=== PATIENT | male | born 1975 | race Hispanic/Latino ===

== ENCOUNTER 2020-02-06 17:18 | Inpatient (IN) | payer MEDICARE ==
[~2020-02-06] VITALS: Ht 175.3 cm; Wt 81.4 kg
[2020-02-06 17:50] VITALS: BP 130/82
[2020-02-06] MEDS ORDERED: SODIUM CHLORIDE 0.9% 1000ML 1,000 ML IV ONE (18:23)
[2020-02-06 19:18] VITALS: BP 138/86
[2020-02-06 19:22] VITALS: BP 138/86
[2020-02-06] MEDS ORDERED: IOHEXOL-350 75 ML VIAL IV ONE (19:29)
[2020-02-06] MEDS: SODIUM CHLORIDE 0.9% 1000ML 1,000 ML IV SCH (19:44)
[2020-02-06] MEDS ORDERED: DiphenhydrAMINE HCL 50 MG/ML VIAL IV PRN (19:45)
[2020-02-06] MEDS ORDERED: ONDANSETRON HCL 4 MG/2 ML VIAL IV PRN (19:45)
[2020-02-06] MEDS ORDERED: MAG HYDROX/AL HYDROX/SIMETH ES 30 ML SUSP UDCUP PO PRN (19:45)
[2020-02-06] MEDS ORDERED: ACETAMINOPHEN 325 MG TAB PO PRN ×2 (19:45)
[2020-02-06] MEDS ORDERED: LACTULOSE 20 GM/30 ML UDCUP PO PRN (19:45)
[2020-02-06] MEDS ORDERED: KETOROLAC TROMETHAMINE 15MG/ML IV PRN (20:00)
[2020-02-06] MEDS ORDERED: ACETAMINOPHEN 650 MG SUPPOSITORY RC ONE (20:30)
[2020-02-06] MEDS: METRONIDAZOLE 500MG/100ML BAG 100 ML IV SCH (20:33)
[2020-02-06] MEDS: FAMOTIDINE/PF 20 MG/2 ML VIAL IV SCH (20:33)
--- NOTE | 2020-02-06 20:40 | NUR ---
Temp: 99.[address] Ring with an order to give Tylenol 650 mg Supp q6h prn instead of po. Also informed tech writer that its just ok to give Ativan as per standing order if pt will have seizure. to review in AM all pt's home medications.
--- NOTE | 2020-02-06 20:45 | NUR ---
Mother reported that pt. pulled out NGT. 14 Fr. NGT inserted to left naris following hospital protocol. Pt. tolerated well. NGT checked for placement, intact and secured with tape. Connected to low intermittent suction with brown-greenish fluid returned in suction canister.
[2020-02-06] MEDS ORDERED: BENZ2TAB10 PO (21:05)
[2020-02-06] MEDS ORDERED: LITH150C PO (21:05)
[2020-02-06] MEDS ORDERED: OLAN20TA35 PO (21:05)
[2020-02-06] MEDS ORDERED: TRAZ300T2 PO (21:05)
[2020-02-06] MEDS ORDERED: DIVA500T52 PO (21:05)
[2020-02-06] MEDS ORDERED: BUSP30TA2 PO (21:05)
[2020-02-06] MEDS ORDERED: OLAN10TA20 PO (21:05)
[2020-02-06] MEDS ORDERED: CLON0.5T23 PO (21:05)
[2020-02-06] MEDS ORDERED: MONT10TA26 PO (21:05)
[2020-02-06] MEDS ORDERED: LEVO5TAB13 PO (21:05)
[2020-02-06] MEDS ORDERED: PROM12.513 PO (21:05)
[2020-02-06] MEDS ORDERED: SULF1TAB89 PO (21:05)
[2020-02-06] MEDS ORDERED: LITH450T16 PO (21:05)
[2020-02-06] MEDS ORDERED: PHEN100C9 PO (21:05)
[2020-02-06] MEDS: CEFTRIAXONE SODIUM 1 GM IV SCH (21:18)
[2020-02-06] MEDS: LORAZEPAM 2 MG/ML 1 ML VIAL IM PRN (22:51)
--- NOTE | 2020-02-06 23:15 | NUR ---
Pt pulled out the NGT again. 16 Fr. NGT inserted to right and left naris following hospital protocol. Pt. not tolerating it well. NGT checked for placement not intact. Have pt rest for 35 mins before attempting again.
[2020-02-06 23:43] VITALS: BP 136/98
--- NOTE | 2020-02-07 00:20 | NUR ---
After period of resting , attempted 14 Fr. NGT insertion to left naris following hospital protocol. Pt. tolerated well. NGT checked for placement, intact and secured with tape x2 . Connected to low intermittent suction with brown-greenish fluid returned in suction canister. Mittens placed as per protocol to prevent harming oneself.
[2020-02-07] MEDS: LORAZEPAM 2 MG/ML 1 ML VIAL IM PRN ×2 (00:27→17:34)
[2020-02-07] MEDS: SODIUM CHLORIDE 0.9% 1000ML 1,000 ML IV SCH ×2 (03:38→13:17)
[2020-02-07 04:00] LABS: HEMATOCRIT 37.5 % (42-54); MEAN CORPUSCULAR HEMOGLOBIN 29.4 pg (27.0-33.0); MEAN CORPUSCULAR HGB CONC 33.6 g/dL (32.0-36.0); MEAN CORPUSCULAR VOLUME 87.4 fL (79-99); PLATELET COUNT (AUTO) 228 K/uL (130-400); RED BLOOD CELL COUNT(AUTO) 4.29 MIL/uL (4.50-6.20); RED CELL DISTRIBUTION WIDTH 12.5 % (11.0-15.5); WHITE BLOOD COUNT (AUTO) 6.7 K/uL (4.8-10.8)
[2020-02-07 04:02] VITALS: BP 102/78
[2020-02-07 04:32] LABS: CREATININE 2.1 mg/dL (0.5-1.5); POTASSIUM 3.3 mmol/L (3.5-5.1)
[2020-02-07] MEDS: METRONIDAZOLE 500MG/100ML BAG 100 ML IV SCH ×3 (04:49→20:08)
--- NOTE | 2020-02-07 05:20 | NUR ---
[employer] staff reported that pt has no urine output since the shift started. Bladder scan done with a result of > 521 ml.
[2020-02-07] MEDS: ACETAMINOPHEN 650 MG SUPPOSITORY RC PRN ×2 (05:36→23:54)
--- NOTE | 2020-02-07 05:40 | NUR ---
Called Dr. Ring via answering service.
--- NOTE | 2020-02-07 06:45 | NUR ---
Called Dr. Ring again via answering service for bladder scan result.
--- NOTE | 2020-02-07 06:50 | NUR ---
Dr. Ring made a return call with an order to insert Lomas on pt.
--- NOTE | 2020-02-07 06:55 | NUR ---
CASTRO INSERTION: Procedure for castro cath insertion explained as ordered by MD. Pt agreed and verbalized understanding. Castro #16 Fr. inserted using aseptic technique, balloon inflated with 10cc sterile water. 600 cc of Dark marbella colored urine returned. Patient tolerated procedure well.
[2020-02-07 08:00] VITALS: BP 97/64
[2020-02-07] MEDS ORDERED: LORA10TA7 PO (08:21)
[2020-02-07] MEDS ORDERED: LACT-69 PO (08:21)
[2020-02-07] MEDS ORDERED: IPRA42SP NS (08:21)
[2020-02-07] MEDS ORDERED: ICOS1CAP PO (08:24)
[2020-02-07] MEDS ORDERED: HALO100A2 IM (08:28)
--- NOTE | 2020-02-07 08:34 | NUR ---
Reviewed CT scan results, suction output of 6000 in 13 hours, and current labs with Dr. Ring. Asked if surgery consult warranted for small bowel obstruction, no consult ordered at this time. Received orders for potassium protocol to replace potassium level of 3.3. Patient asymptomatic.
[2020-02-07] MEDS ORDERED: HALOPERIDOL LACTATE 5 MG/ML VIAL IM PRN (08:45)
[2020-02-07] MEDS: METOPROLOL TARTRATE 1 MG/ML 5ML VIAL IV SCH ×3 (10:39→23:49)
[2020-02-07] MEDS: POTASSIUM CHLORIDE 20MEQ/100ML 100 ML IV PRN ×2 (10:48→22:06)
[2020-02-07] MEDS: FAMOTIDINE/PF 20 MG/2 ML VIAL IV SCH ×2 (10:48→20:08)
[2020-02-07 11:00] VITALS: BP 92/60
--- NOTE | 2020-02-07 11:16 | NUR ---
1044 patient at this moment is confused, I spoke to his mother via telephone(Marques Ross [phone]) and notified her of Inpt status change. She asked me to have Brother sign consent but he is not in the room at this time. I faxed IM Letter to [id number] with note; notified mother marques ross of inpt status" i placed IM Letter in chart under consent tab.
[2020-02-07 12:04] VITALS: BP 97/68
[2020-02-07 19:15] VITALS: BP 103/70
[2020-02-07 20:00] VITALS: BP 111/78
[2020-02-07] MEDS: CEFTRIAXONE SODIUM 1 GM IV SCH (20:08)
[2020-02-07] MEDS: PHENYTOIN SODIUM 50 MG/ML 2ML VIAL IV SCH (21:28)
[2020-02-07] MEDS: LIDOCAINE HCL-MPF 1% 2ML VIAL IV PRN (22:06)
[2020-02-08] VITALS: BP 108/62
--- NOTE | 2020-02-08 00:20 | NUR ---
Pt. pulled out NGT at this time. He was not combative but was verbalizing that the tube is driving him crazy. Attempted 14 Fr. NGT insertion to left naris 2x following hospital protocol, but is not going in. Had pt relaxed for sometime. 0015: Attempt 12 Fr. NGT to left naris and it go through up to the level of 65 cm. Pt. tolerated well. NGT checked for placement, intact and secured with tape applied accordingly. Connected to low intermittent suction with greenish fluid returned in suction canister. Mittens still in placed as per protocol to prevent harming oneself.
[2020-02-08] MEDS: SODIUM CHLORIDE 0.9% 1000ML 1,000 ML IV SCH ×3 (01:54→22:27)
[2020-02-08] MEDS: LORAZEPAM 2 MG/ML 1 ML VIAL IVP PRN (01:54)
[2020-02-08 04:07] VITALS: BP 109/70
[2020-02-08] MEDS: METRONIDAZOLE 500MG/100ML BAG 100 ML IV SCH ×3 (05:56→22:27)
[2020-02-08 06:20] LABS: HEMATOCRIT 35.3 % (42-54); MEAN CORPUSCULAR HEMOGLOBIN 29.1 pg (27.0-33.0); MEAN CORPUSCULAR HGB CONC 32.6 g/dL (32.0-36.0); MEAN CORPUSCULAR VOLUME 89.4 fL (79-99); RED BLOOD CELL COUNT(AUTO) 3.95 MIL/uL (4.50-6.20); RED CELL DISTRIBUTION WIDTH 12.3 % (11.0-15.5); WHITE BLOOD COUNT (AUTO) 9.1 K/uL (4.8-10.8)
[2020-02-08 06:36] LABS: CREATININE 1.3 mg/dL (0.5-1.5); POTASSIUM 3.2 mmol/L (3.5-5.1)
[2020-02-08 07:57] VITALS: BP 96/57
[2020-02-08] MEDS: METOPROLOL TARTRATE 1 MG/ML 5ML VIAL IV SCH ×2 (08:45→16:47)
[2020-02-08] MEDS: POTASSIUM CHLORIDE 20MEQ/100ML 100 ML IV PRN ×2 (10:34→16:27)
[2020-02-08] MEDS: LIDOCAINE HCL-MPF 1% 2ML VIAL IV PRN ×2 (10:39→16:26)
[2020-02-08] MEDS: FAMOTIDINE/PF 20 MG/2 ML VIAL IV SCH ×2 (10:41→22:27)
[2020-02-08 12:00] VITALS: BP 114/70
[2020-02-08] MEDS ORDERED: BISACODYL 10 MG SUPP.RECT RC SCH (12:00)
--- NOTE | 2020-02-08 12:52 | NUR ---
[place] NOTE/IA PATIENT CONFUSED, FAMILY AT BEDSIDE. PER FAMILY MEMBER, PATIENT IS DISABLED AND REQUIRES ASSISTANCE WITH ADLS, LIVES WITH MOTHER, HAS WC AND WALKER IN USE, ASSISTANCE FROM STATE ON A REGULAR BASIS, AND FEELS SAFE FOR PATIENT TO RETURN HOME. Addendum: 02/08/20 at 1253 by GONZALO RIOS RN CM Amended: Links added.
[2020-02-08] MEDS: HALOPERIDOL LACTATE 5 MG/ML VIAL IV SCH ×2 (14:18→22:28)
[2020-02-08 16:00] VITALS: BP 113/75
[2020-02-08 20:16] VITALS: BP 124/72
[2020-02-08] MEDS: CEFTRIAXONE SODIUM 1 GM IV SCH (22:27)
[2020-02-08] MEDS: PHENYTOIN SODIUM 50 MG/ML 2ML VIAL IV SCH (22:28)
[2020-02-08] MEDS ORDERED: BISACODYL 10 MG SUPP.RECT RC ONE (23:15)
--- NOTE | 2020-02-08 23:20 | NUR ---
MD STATUS UPDATE MD BERMUDEZ CALLED TO OBTAIN UPDATE ON PATIENT BM'S. ACCORDING TO MORNING SHIFT NURSE PT HAD BM EARLIER TODAY AFTER SUPPOSITORY WAS ADMINISTERED. MD STATED TO GIVE ENEMA AND ADMINISTER ANOTHER SUPPOSITORY AFTER THE ENEMA. REFER TO EMR FOR MD ORDERS.
[2020-02-09] VITALS: BP 112/67
[2020-02-09] MEDS ORDERED: BISACODYL 10 MG SUPP.RECT RC ONE (00:18)
[2020-02-09] MEDS: METOPROLOL TARTRATE 1 MG/ML 5ML VIAL IV SCH ×3 (00:23→16:48)
--- NOTE | 2020-02-09 01:00 | NUR ---
BM UPDATE ENEMA WAS ADMINISTERED, PT WAS ASSISTED TO THE BATHROOM WHERE HE HAD A SMALL BOWEL MOVEMENT AFTERWARDS. PT WAS THEN ASSISTED BACK INTO BED AND SUPPOSITORY WAS ADMINISTERED PER MD ORDER.
[2020-02-09 04:00] VITALS: BP 125/77
[2020-02-09] MEDS: METRONIDAZOLE 500MG/100ML BAG 100 ML IV SCH ×3 (04:34→20:51)
[2020-02-09] MEDS: LORAZEPAM 2 MG/ML 1 ML VIAL IVP PRN (04:34)
[2020-02-09] MEDS: SODIUM CHLORIDE 0.9% 1000ML 1,000 ML IV SCH ×2 (05:35→18:11)
[2020-02-09 05:51] LABS: CREATININE 0.7 mg/dL (0.5-1.5)
[2020-02-09 06:35] LABS: POTASSIUM 2.9 mmol/L (3.5-5.1)
[2020-02-09] MEDS: LIDOCAINE HCL-MPF 1% 2ML VIAL IV PRN ×4 (06:38→23:17)
[2020-02-09] MEDS: HALOPERIDOL LACTATE 5 MG/ML VIAL IV SCH ×3 (06:38→22:37)
[2020-02-09] MEDS: POTASSIUM CHLORIDE 20MEQ/100ML 100 ML IV PRN ×4 (06:39→23:16)
[2020-02-09 08:00] VITALS: BP_SYST 117; BP_SYST 99; BP_DIAS 67; BP_DIAS 74
[2020-02-09] MEDS ORDERED: COMPOUND IV MISC 1 EACH IVSOLN MISC PRN (08:00)
[2020-02-09] MEDS: FAMOTIDINE/PF 20 MG/2 ML VIAL IV SCH ×2 (09:34→20:50)
[2020-02-09] MEDS ORDERED: GLYCERIN ADULT SUPP.RECT RC SCH (09:45)
[2020-02-09 16:00] VITALS: BP 101/76
[2020-02-09] MEDS ORDERED: LACTULOSE 20 GM/30 ML UDCUP PO SCH (16:00)
--- NOTE | 2020-02-09 16:30 | NUR ---
PATIENT PULLED NGT.. PER MD IF NGT OUT DO NOT REINSERT. WILL CONT TO MONITOR .
[2020-02-09 20:00] VITALS: BP 119/74
[2020-02-09] MEDS: CEFTRIAXONE SODIUM 1 GM IV SCH (20:50)
[2020-02-09] MEDS: POTASSIUM CHLORIDE 10% ELIXIR 20 MEQ/15 ML UDCUP PO SCH (20:52)
[2020-02-09] MEDS ORDERED: PHENYTOIN SODIUM IV SCH (21:00)
[2020-02-09] MEDS ORDERED: SODIUM CHLORIDE 0.9% IV SCH (21:00)
[2020-02-10] VITALS (7 sets, daily range): BP systolic 104–121; BP diastolic 64–78
[2020-02-10] MEDS: METOPROLOL TARTRATE 1 MG/ML 5ML VIAL IV SCH ×2 (01:41→09:16)
[2020-02-10] MEDS: LORAZEPAM 2 MG/ML 1 ML VIAL IVP PRN (02:06)
[2020-02-10] MEDS: SODIUM CHLORIDE 0.9% 1000ML 1,000 ML IV SCH ×3 (04:57→22:41)
[2020-02-10] MEDS: HALOPERIDOL LACTATE 5 MG/ML VIAL IV SCH ×4 (06:00→18:32)
[2020-02-10] MEDS: METRONIDAZOLE 500MG/100ML BAG 100 ML IV SCH (06:02)
[2020-02-10 06:35] LABS: HEMATOCRIT 34.9 % (42-54); MEAN CORPUSCULAR HGB CONC 32.7 g/dL (32.0-36.0); MEAN CORPUSCULAR VOLUME 88.8 fL (79-99); RED BLOOD CELL COUNT(AUTO) 3.93 MIL/uL (4.50-6.20); RED CELL DISTRIBUTION WIDTH 12.5 % (11.0-15.5); WHITE BLOOD COUNT (AUTO) 10.6 K/uL (4.8-10.8)
[2020-02-10 07:09] LABS: CREATININE 0.6 mg/dL (0.5-1.5)
[2020-02-10] MEDS: FAMOTIDINE/PF 20 MG/2 ML VIAL IV SCH (09:15)
[2020-02-10] MEDS: POTASSIUM CHLORIDE 10% ELIXIR 20 MEQ/15 ML UDCUP PO SCH (09:16)
[2020-02-10] MEDS ORDERED: METOPROLOL TARTRATE 25 MG TAB PO PRN (10:15)
[2020-02-10] MEDS ORDERED: METR-172 PO (10:28)
[2020-02-10] MEDS ORDERED: POLY17PO4 PO (10:28)
[2020-02-10] MEDS: CLONAZEPAM 1 MG TABLET PO SCH ×2 (15:05→22:28)
[2020-02-10] MEDS: BENZTROPINE MESYLATE 0.5 MG TAB PO SCH ×2 (15:06→22:26)
[2020-02-10] MEDS: DIVALPROEX SODIUM 250 MG TABLET.DR PO SCH ×2 (15:06→22:28)
[2020-02-10] MEDS: BUSPIRONE HCL 5 MG TABLET PO SCH ×2 (15:06→22:25)
[2020-02-10] MEDS: PHENYTOIN SODIUM 100 MG ERCAP PO SCH ×2 (15:07→22:26)
[2020-02-10] MEDS: OLANZAPINE 5 MG TAB PO SCH (15:07)
[2020-02-10] MEDS: POTASSIUM CHLORIDE 20MEQ/100ML 100 ML IV PRN ×2 (18:31→22:36)
[2020-02-10] MEDS ORDERED: TRAZODONE HCL 100 MG TABLET PO SCH (21:00)
[2020-02-10] MEDS ORDERED: OLANZAPINE 5 MG TAB PO SCH (21:00)
[2020-02-10] MEDS: FAMOTIDINE 20MG TAB 20 MG TAB PO SCH (22:25)
[2020-02-10] MEDS: LITHIUM CARBONATE 150 MG CAPSULE PO SCH (22:25)
[2020-02-10] MEDS: METRONIDAZOLE 500 MG TABLET PO SCH (22:28)
[2020-02-10] MEDS: POTASSIUM CHLORIDE 20 MEQ ERTAB PO SCH (22:28)
[2020-02-10] MEDS: LIDOCAINE HCL-MPF 1% 2ML VIAL IV PRN (22:42)
[2020-02-11 04:18] VITALS: BP 91/53
[2020-02-11] MEDS: HALOPERIDOL LACTATE 5 MG/ML VIAL IV SCH (05:46)
[2020-02-11 05:57] LABS: CREATININE 0.6 mg/dL (0.5-1.5); POTASSIUM 3.2 mmol/L (3.5-5.1)
[2020-02-11 08:00] VITALS: BP 109/66
[2020-02-11] MEDS: OLANZAPINE 5 MG TAB PO SCH (08:12)
[2020-02-11] MEDS: CLONAZEPAM 1 MG TABLET PO SCH (08:13)
[2020-02-11] MEDS: BUSPIRONE HCL 5 MG TABLET PO SCH (08:13)
[2020-02-11] MEDS: DIVALPROEX SODIUM 250 MG TABLET.DR PO SCH ×2 (08:13→13:33)
[2020-02-11] MEDS: METRONIDAZOLE 500 MG TABLET PO SCH (08:13)
[2020-02-11] MEDS: FAMOTIDINE 20MG TAB 20 MG TAB PO SCH (08:13)
[2020-02-11] MEDS: BENZTROPINE MESYLATE 0.5 MG TAB PO SCH ×2 (08:13→13:34)
[2020-02-11] MEDS: PHENYTOIN SODIUM 100 MG ERCAP PO SCH ×2 (08:13→13:33)
[2020-02-11] MEDS: POTASSIUM CHLORIDE 20 MEQ ERTAB PO SCH (08:14)
[2020-02-11] MEDS ORDERED: POTA20TA12 PO (08:25)
[2020-02-11] MEDS ORDERED: CETIRIZINE HCL 5 MG TABLET PO SCH (09:00)
[2020-02-11] MEDS ORDERED: LITHIUM CARBONATE 150 MG CAPSULE PO SCH (09:00)
--- NOTE | 2020-02-11 11:01 | NUR ---
CM NOTE CLEARED FOR DISCHARGE HOME PER DR. BERMUDEZ. NON/EMERGENCY EMS TRANSFER SET UP THRU [facility]. PER MOTHER, OK TO SEND RX TO [facility]. JENNIFER LANGE, PRIMARY NURSE, AWARE OF [facility] TRANSFER AND RX TO BE CALLED IN TO [facility].
[2020-02-11 12:00] VITALS: BP 111/61
[2020-02-11] MEDS: LITHIUM CARBONATE 150 MG CAPSULE PO SCH (13:21)
--- NOTE | 2020-02-11 14:30 | NUR ---
INSTRUCTIONS DISCHARGE INSTRUCTIONS GIVEN TO PATIENT'S MOTHER OVER THE TELEPHONE. F/U APPOINTMENTS MADE. NEW PRESCRIPTIONS CALLED IN TO PATIENT'S PREFERRED PHARMACY. IV HAS BEEN REMOVED WITH TIP INTACT. SITE COVERED WITH DRY GAUZE AND TAPE. PENDING ARRIVAL OF EMS FOR TRANSPORT HOME.
== END 2020-02-11 16:45 | disposition home or self-care (01) | DRG 389 ==
LOC: EDH 17:18 → OBSVTOIN 17:37 → 3DH 17:37 → 3AH 02-08 22:31
PROVIDERS: ADMIT Internal Medicine; ATTEND Internal Medicine
DX: K56.609 Unspecified intestinal obstruction, unspecified as to partial versus complete obstruction (principal); E87.1 Hypo-osmolality and hyponatremia; G40.909 Epilepsy, unspecified, not intractable, without status epilepticus; R63.1 Polydipsia; E78.2 Mixed hyperlipidemia; F20.9 Schizophrenia, unspecified; K21.9 Gastro-esophageal reflux disease without esophagitis; E88.81 Metabolic syndrome and other insulin resistance; F41.1 Generalized anxiety disorder; K52.9 Noninfective gastroenteritis and colitis, unspecified; R33.9 Retention of urine, unspecified; Z83.3 Family history of diabetes mellitus; Z82.49 Family history of ischemic heart disease and other diseases of the circulatory system; Z80.42 Family history of malignant neoplasm of prostate; Z88.0 Allergy status to penicillin
CPT/HCPCS: 36415; 74018; 74178; 80048; 83735; 84132; 85027; 87040; A4344; G0378; J0696; J1165; J1630; J1885; J2060; J3480; J3490; J7030; Q9967

== ENCOUNTER → 2023-07-06 | Outpatient (CLI) | payer MEDICARE ==
[~2023-07-06] MED LIST: BENZ2TAB70 PO; BUSP30TA2 PO; CLON0.5T23 PO; DIVA500T52 PO; HALO100A2 IM; ICOS1CAP PO; IPRA42SP NS; LACT-69 PO; LEVO5TAB13 PO; LITH150C PO; LITH450T16 PO; LORA10TA7 PO; METR-172 PO; MONT-39 PO; OLAN10TA73 PO; OLAN20TA35 PO; PHEN100C9 PO; POLY17PO4 PO; POTA-192 PO; PROM12.513 PO; SULF1TAB89 PO; TRAZ300T2 PO
== END | disposition home or self-care (01) ==
LOC: OIH 10:38
PROVIDERS: ATTEND Internal Medicine
DX: M79.672 Pain in left foot (principal)
CPT/HCPCS: 73620